=== PATIENT | female | born 1930 | race African-American/Black ===

== ENCOUNTER 2017-01-28 11:26 | Emergency (ER) | payer MEDICARE, BC ==
[~2017-01-28] VITALS: Ht 154.9 cm; Wt 67.0 kg
[2017-01-28 11:45] VITALS: BP 132/70
[2017-01-28] MEDS ORDERED: MOBI7 GT (11:50)
[2017-01-28] MEDS ORDERED: MEMA10TA2 PO (11:51)
[2017-01-28] MEDS ORDERED: LORA10TA7 PO (11:51)
[2017-01-28] MEDS ORDERED: DONE10TA11 PO (11:51)
[2017-01-28] MEDS ORDERED: MIRT-91 PO (11:51)
[2017-01-28] MEDS ORDERED: ATOR20TA65 PO (11:52)
[2017-01-28] MEDS ORDERED: AMLO10TA80 PO (11:52)
[2017-01-28] MEDS ORDERED: BUSP15TA3 PO (11:53)
== END 2017-01-28 18:22 | disposition left against medical advice (07) ==
LOC: ER 13:02
DX: Z76.1 Encounter for health supervision and care of foundling (principal); Z53.21 Procedure and treatment not carried out due to patient leaving prior to being seen by health care provider